=== PATIENT | female | born 1985 | race Caucasian/White ===

== ENCOUNTER 2018-03-04 09:58 | Emergency (ER) | payer OTHER ==
[~2018-03-04] VITALS: Ht 167.6 cm; Wt 116.1 kg
[~2018-03-04 09:58] MED LIST: BACTRIM DS 8001 TAB PO; CEPHALEXIN500 MG PO
--- NOTE | 2018-03-04 11:15 | RADIOLOGY REPORT ---
EXAMINATION: CR CHEST CR ABDOMEN MULTIPLE VIEWS CLINICAL INDICATION: Chest and abdominal pain and bloating. Constipation for 3 weeks. Rule out cardiac changes. Rule out constipation versus small bowel obstruction. Denies chance of . COMPARISON: Chest x-ray dated 09/18/2009. CT scan of the abdomen and pelvis dated 09/11/2013. Ultrasound of the abdomen dated 12/26/2012. TECHNIQUE: 2 views of the chest. 2 views of the abdomen performed on 3 images. FINDINGS: Chest x-ray: The cardiomediastinal silhouette is within normal limits in size. Lungs bilaterally are symmetrically mildly hypoinflated with crowding of bronchovascular lung markings in the lung bases. No focal consolidation, effusion or pneumothorax is seen. Bony structures are unremarkable. Two-view abdomen: Moderate amount of fecal material seen throughout the colon. No evidence of the rectal fecal impaction or abnormal small or large bowel dilatation. No evidence of bowel perforation. Bony structures unremarkable. IMPRESSION: 1. Mildly hyperinflated lungs. No focal acute pulmonary process. 2. Moderate amount of fecal material seen throughout the colon, consistent with patient's history of constipation. No evidence of bowel obstruction or perforation.
--- NOTE | 2018-03-04 12:15 | ED GI/GU/ABDOMINAL COMPLAINT ---
History of Present Illness General Chief Complaint: General Adult Stated Complaint: CONSTIPATION, ABD PAIN Source: patient Exam Limitations: no limitations Vital Signs & Intake/Output Vital Signs & Intake/Output Vital Signs Date Time Temp Pulse Resp B/P B/P Pulse O2 O2 Flow FiO2 Mean Ox Delivery Rate 03/04 1315 98.1 99 16 126/79 99 Room Air 03/04 1221 Room Air 03/04 1009 98.2 104 18 130/86 94 Room Air Allergies Coded Allergies: NO KNOWN ALLERGIES (09/14/13) Triage Note: 32F REPORTS 2 WEEKS OF CONSTIPATION EVEN DESPITE MIRALAX. REPORTS PAIN TO LOW ABDOMEN R>L X2 WEEKS AND RADIATES INTO HER BACK. CURRENTLY USES 85MG METHADONE DAILY. REPORTS ONLY 3-4 CUPS OF WATER DAILY. HAS NOT HAD FLATULENCE IN ABOUT A WEEK. HX UMBILICAL HERNIA REPAIR, APPENDECTOMY, LAP EXPLORATORY INTESTINAL SX. DENIES KNOWNLEDGE OF SBO. REPORTS POOR APPETITE, BLOATING, DENIES HICCUPS OR BELCHING/VOMITING Triage Nurses Notes Reviewed? yes ? N Is pt currently ? No Onset: Gradual Duration: constant Timing: recent history Severity Numbers: 5 Location: generalized abdomen HPI: Patient is a 32-year-old female with a past medical history of opiate dependency currently on methadone with chronic constipation who presents emergency room for concerns of abdominal pain and constipation 2 weeks Patient is able to tolerate by mouth however has had decreased amounts in the past 3 days for concerns of worsening constipation, last bowel movement was 2 days ago noted to be "pellets" no blood no melena. Patient tried MiraLAX prior to arrival with no relief of symptoms. Denies any fever chills chest pain arm pain jaw pain dysuria hematuria No change in symptoms after eating or drinking. Patient is remote appendectomy surgery history and paraumbilical hernia (Dutch Felix) Reconcile Medications Cephalexin 500 MG CAP 1 CAP PO TID infection Magnesium Citrate 296 ML SOLUTION 296 ML PO ONCE PRN CONSTIPATION Peg 3350/Na Sulf,Bicarb,Cl/KCl (Golytely Packet) 227.1-21.5 POWD.PACK 1 PAC PO DAILY PRN CONSTIPATION Sulfamethoxazole/Trimethopri (Bactrim Ds 800 MG-160 MG) 1 TAB TAB 1 TAB PO BID infection (Lazarus MERCEDES,Blair) Past History Travel History Traveled to [place] past 21 day No Medical History Any Pertinent Medical History? see below for history Cardiovascular: hyperlipidemia Other Medical Hx: Opiate dependence History of MRSA: No History of VRE: No History of CDIFF: No Surgical History Surgical History: appendectomy, hernia repair-umbilical Psychosocial History Who do you live with Family Services at Home None What is your primary language Portuguese Family History Hx Contributory? No (Dutch Felix) Review of Systems Review of Systems Constitutional: Reports: no symptoms. EENTM: Reports: no symptoms. Respiratory: Reports: no symptoms. Cardiovascular: Reports: no symptoms. GI: Reports: see HPI. Genitourinary: Reports: no symptoms. Musculoskeletal: Reports: no symptoms. Skin: Reports: no symptoms. Neurological/Psychological: Reports: no symptoms. Hematologic/Endocrine: Reports: no symptoms. Immunologic/Allergic: Reports: no symptoms. All Other Systems: Reviewed and Negative (Dutch Felix) Physical Exam Physical Exam General Appearance: no apparent distress, alert, comfortable Head: atraumatic Eyes: Bilateral: normal appearance. Ears, Nose, Throat, Mouth: moist mucous membrane Neck: normal inspection Cardiovascular: regular rate/rhythm Gastrointestinal: normal bowel sounds, tenderness Extremities: normal range of motion Neurologic/Psych: no motor/sensory deficits Skin: intact, normal color Core Measures ACS in differential dx? No Sepsis Present: No Sepsis Focused Exam Completed? No (Dutch Felix) Progress Differential Diagnosis: AAA, AMI, appendicitis, biliary colic, bowel obstruction , colon cancer, cholecystitis, diverticulitis, ectopic , endometritis, esophageal varices, gastritis, hepatitis, hernia, hemorrhoids, ischemic bowel, inflamm bowel dis, intrauterine , kidney stone, Sahra-Marilynn tear, ovarian cyst, ovarian torsion, pancreatitis, PID/cervicitis, peptic ulcer, PUD/ GERD, perforated viscous, SBO, threatened AB, UTI/pyelo Plan of Care: Orders Procedure Date/time Status URINALYSIS 03/04 1014 Complete LIPASE 03/04 1014 Complete COMPREHENSIVE METABOLIC PANEL 03/04 1014 Complete CBC WITHOUT DIFFERENTIAL 03/04 1014 Complete Laboratory Tests 03/04/18 1205: Urine Color YEL, Urine Clarity HAZY H, Urine pH 6.0, Ur Specific [place] >= 1.030, Urine Protein TRACE H, Urine Ketones NEG, Urine Nitrite NEG, Urine Bilirubin NEG@ICTO, Urine Urobilinogen 0.2, Ur Leukocyte Esterase NEG, Ur Microscopic SEDIMENT EXAMINED, Urine RBC RARE, Urine WBC 1-3 H, Ur Epithelial Cells MANY H, Urine Bacteria MANY H, Hyaline Casts RARE H, Granular Casts RARE H, Urine Mucus MOD H, Urine Hemoglobin NEG, Urine Glucose NEG 03/04/18 1157: Anion Gap 14, Estimated GFR > 60, BUN/Creatinine Ratio 17.5, Glucose 91, Calcium 9.5, Total Bilirubin 0.4, AST 32, ALT 41, Alkaline Phosphatase 137 H, Total Protein 8.0, Albumin 4.6, Globulin 3.4, Albumin/Globulin Ratio 1.4, Lipase 109, CBC w Diff NO MAN DIFF REQ, RBC 4.91, MCV 89.1, MCH 29.3, MCHC 32.9 L, RDW 12.7 , MPV 9.2, Gran % 63.0, Lymphocytes % 27.8, Monocytes % 4.3, Eosinophils % 4.6, Basophils % 0.3, Absolute Granulocytes 6.6 H, Absolute Lymphocytes 2.9, Absolute Monocytes 0.4, Absolute Eosinophils 0.5, Absolute Basophils 0 Patient upon initial examination was resting comfortably bedside on her phone distress patient has generalized abdominal discomfort x-rays resulted no concerns of obstruction, patient was able tolerate by mouth upon arrival patient had bowel movement in the past 24 hours I reviewed all blood work with patient my suspicion of cholecystitis is low Patient had unremarkable liver function tests and bilirubin. I strongly advised patient to follow-up with discharge instructions and plan. Patient had no questions Diagnostic Imaging: Viewed by Me: Radiology Read. Radiology Impression: SEE COMMENTS Initial ED EKG: none Comments: PATIENT: KARAN PUGH PRESENT AGE: 32 PATIENT ACCOUNT NO: [id number] : 83 LOCATION: [facility] ORDERING PHYSICIAN: Benjamin Celeste (TBS) DO SERVICE DATE: 03/04/18-1014 EXAM TYPE: RAD - [id number]-[id number]-YMAUARMD VIEWS; XRY-CHEST XRAY, TWO VIEWS EXAMINATION: CR CHEST CR ABDOMEN MULTIPLE VIEWS CLINICAL INDICATION: Chest and abdominal pain and bloating. Constipation for 3 weeks. Rule out cardiac changes. Rule out constipation versus small bowel obstruction. Denies chance of . COMPARISON: Chest x-ray dated 09/18/2009. CT scan of the abdomen and pelvis dated 09/11/2013. Ultrasound of the abdomen dated 12/26/2012. TECHNIQUE: 2 views of the chest. 2 views of the abdomen performed on 3 images. FINDINGS: Chest x-ray: The cardiomediastinal silhouette is within normal limits in size. Lungs bilaterally are symmetrically mildly hypoinflated with crowding of bronchovascular lung markings in the lung bases. No focal consolidation, effusion or pneumothorax is seen. Bony structures are unremarkable. Two-view abdomen: Moderate amount of fecal material seen throughout the colon. No evidence of the rectal fecal impaction or abnormal small or large bowel dilatation. No evidence of bowel perforation. Bony structures unremarkable. IMPRESSION: 1. Mildly hyperinflated lungs. No focal acute pulmonary process. 2. Moderate amount of fecal material seen throughout the colon, consistent with patient's history of constipation. No evidence of bowel obstruction or perforation. (Dutch Felix) Departure Departure Disposition: HOME OR SELF CARE Condition: Stable Clinical Impression Primary Impression: Abdominal pain Secondary Impressions: Constipation Referrals: Patricia Couch APRN (PCP/Family) Suman Ford MD Additional Instructions: As discussed begin the prescription of magnesium citrate today for concerns of constipation and bowel promotion, if no bowel movement tomorrow begin the prescription of GoLYTELY for bowel promotion breakthrough symptomatic relief, if no better on Tuesday follow-up with an established water and gas helper Dr. Ford. If symptoms worsen or if he develop any new concerning symptom return to emergency room. Prescriptions are waiting a [facility] [place]. Begin drinking plenty of water and fiber for improvement of your bowel production and begin a regimen of lyah-[id number]-[id number] stool softener such as DOCULSATE and over- the-counter MiraLAX to improve bowel function Departure Forms: Customer Survey General Discharge Information Prescriptions: Current Visit Scripts Peg 3350/Na Sulf,Bicarb,Cl/KCl (Golytely Packet) 1 PAC PO DAILY PRN CONSTIPATION #1 PAC Magnesium Citrate 296 ML PO ONCE PRN CONSTIPATION #296 ML (Dutch Felix) PA/POLE SANDER OPERATOR Co-Sign Statement Statement: ED Attending supervision documentation- I saw and evaluated the patient. I have also reviewed all the pertinent lab results and diagnostic results. I agree with the findings and the plan of care as documented in the PA's/POLE SANDER OPERATOR's documentation. x I have reviewed the ED Record and agree with the PA's/POLE SANDER OPERATOR's documentation. [] Additions or exceptions (if any) to the PAs/POLE SANDER OPERATOR's note and plan are summarized below: [] (Hipona MD,Blair)
[2018-03-04 12:19] LABS: ABSOLUTE BASOPHIL COUNT 0 /CUMM (0.0-0.2); ABSOLUTE EOSINOPHIL COUNT 0.5 /CUMM (0.0-0.7); ABSOLUTE GRANULOCYTE CT 6.6 /CUMM (1.4-6.5); ABSOLUTE LYMPH COUNT 2.9 /CUMM (1.2-3.4); ABSOLUTE MONOCYTE COUNT 0.4 /CUMM (0.10-0.60); BASOPHIL % 0.3 % (0.0-2.0); EOSINOPHIL % 4.6 % (0-5); HEMATOCRIT 43.8 % (37-47); MEAN CORPUSCULAR HGB 29.3 PG (27.0-31.0); MEAN CORPUSCULAR HGB CONC 32.9 G/DL (33.0-37.0); MEAN CORPUSCULAR VOLUME 89.1 FL (81.0-99.0); MEAN PLATELET VOLUME 9.2 FL (7.4-10.4); PLATELET COUNT 191 /CUMM (130-400); RBC DISTRIBUTION WIDTH 12.7 % (11.5-14.5); RED BLOOD CELL CT 4.91 /CUMM (4.20-5.40); WHITE BLOOD CELL COUNT 10.4 /CUMM (4.8-10.8)
[2018-03-04] MEDS ORDERED: GOLYTELY PACKE1 EACH PO (12:55)
[2018-03-04] MEDS ORDERED: MAGNESIUM CITR296 ML PO (12:55)
[2018-03-04 13:15] VITALS: BP 126/79
== END 2018-03-04 13:31 ==
LOC: ERH 09:58
PROVIDERS: Emergency Medicine
DX: K59.00 Constipation, unspecified (principal)
CPT/HCPCS: 71046; 74021; 81001